=== PATIENT | male | born 1970 | race Caucasian/White ===

== ENCOUNTER 2020-06-27 14:53 | Emergency (ER) | payer OTHER, BC ==
[~2020-06-27] VITALS: Ht 175.3 cm; Wt 81.8 kg
[2020-06-27 14:57] VITALS: TEMP 98.2
[2020-06-27] MEDS ORDERED: LIPITOR 40MG TA40 MG PO (15:25)
[2020-06-27] MEDS ORDERED: PROZAC40 MG PO (15:25)
[2020-06-27] MEDS ORDERED: INDERAL 10MG10 MG PO (15:25)
[2020-06-27] MEDS ORDERED: MINIPRESS 5M5 MG/CAP PO (15:26)
[2020-06-27] MEDS ORDERED: NOVOLOG FLEX100 U/ML (15:26)
[2020-06-27] MEDS ORDERED: MAXALT10 MG PO (15:26)
[2020-06-27] MEDS ORDERED: LANTUS SOLOS100 U/ML SQ (15:27)
[2020-06-27] MEDS ORDERED: ZANAFLEX CAPSULE4 MG PO (15:27)
[2020-06-27 16:20] VITALS: BP 125/92; PULSE 83
== END 2020-06-27 16:21 | disposition home or self-care (01) ==
LOC: COL.ER 14:53
DX: S06.0X0A Concussion without loss of consciousness, initial encounter (principal); E11.9 Type 2 diabetes mellitus without complications; F43.10 Post-traumatic stress disorder, unspecified; Z90.89 Acquired absence of other organs; Z79.4 Long term (current) use of insulin; W01.0XXA Fall on same level from slipping, tripping and stumbling without subsequent striking against object, initial encounter; Y99.1 Military activity